=== PATIENT | male | born 1985 ===

== ENCOUNTER 2017-04-11 20:08 | Emergency (ER) | payer BC, OTHER ==
[2017-04-11] MEDS ORDERED: Ketorolac Tromethamine 60 MG/2 ML VIAL ONE (21:01)
[2017-04-11] MEDS ORDERED: HYDROcodone/Acetaminophen 10/325 mg Tablet ONE (21:01)
--- NOTE | 2017-04-11 21:09 | RAD ---
LEFT KNEE FOUR VIEW 04/11/17 HISTORY: Bending down at work, felt an explosion in his left knee. COMPARISON: None. FINDINGS: No acute fracture or malalignment is appreciated. Moderate joint effusion. IMPRESSION: No acute fracture or malalignment. MRI recommended for evaluation for internal derangement if clinic al symptoms suggests. POS: [facility]
== END 2017-04-11 21:30 | disposition home or self-care (01) ==
LOC: BURERS 20:08
DX: S89.92XA Unspecified injury of left lower leg, initial encounter (principal); X50.9XXA Other and unspecified overexertion or strenuous movements or postures, initial encounter; Y92.69 Other specified industrial and construction area as the place of occurrence of the external cause; Y99.0 Civilian activity done for income or pay
CPT/HCPCS: 96372; J1885